=== PATIENT | male | born 1975 | race Caucasian/White ===

== ENCOUNTER 2016-05-02 07:49 | Emergency (ER) | payer BC, OTHER ==
[2016-05-02] MEDS ORDERED: HYDROcodone/Acetaminophen 10/325 mg Tablet ONE (08:31)
[2016-05-02] MEDS ORDERED: Naproxen 500 MG TAB ONE (08:31)
[2016-05-02] MEDS ORDERED: Cephalexin 500 MG CAP ONE (08:32)
== END 2016-05-02 08:40 | disposition home or self-care (01) ==
LOC: MADERS 07:49
DX: S61.412A Laceration without foreign body of left hand, initial encounter (principal); S01.01XA Laceration without foreign body of scalp, initial encounter; V89.2XXA Person injured in unspecified motor-vehicle accident, traffic, initial encounter
CPT/HCPCS: 99284; J2001